=== PATIENT | male | born 1995 | race Caucasian/White ===

== ENCOUNTER 2016-11-26 17:50 | Emergency (ER) | payer BC, MEDICAID ==
[2016-11-26 18:03] VITALS: BP 136/71; TEMP 100.5; O2SAT 98
[2016-11-26] MEDS ORDERED: IBUPROFEN 200 MG TAB PO ONE (18:16)
[2016-11-26] MEDS ORDERED: ACETAMINOPHEN 325 MG TAB PO ONE (18:16)
--- NOTE | 2016-11-26 18:47 | ED.PDOC ---
History of Present Illness - General Chief Complaint: Fever Stated Complaint: Sore throat, body aches Time Seen by Provider: 11/26/16 17:59 Source: patient Exam Limitations: no limitations - History of Present Illness Initial Comments: The patient is a 21-year-old male presenting to the emergency room secondary to 3-5 days of symptoms of low-grade fever and mildsore throat. He has had a mild runny nose and a mild cough. He does have some body aches. No rash. Mild headache. No altered mental status. No diarrhea. Severity: moderate Improving Factors: nothing Worsening Factors: nothing Associated Symptoms: cough, loss of appetite, malaise Allergies/Adverse Reactions: Allergies NO KNOWN ALLERGY Allergy (Verified 11/26/16 18:01) Home Medications: Ambulatory Orders NK [NK] 11/26/16 Review of Systems - Review of Systems Constitutional: States: malaise EENTM: States: nose congestion, throat pain Respiratory: States: cough Cardiology: States: no symptoms reported Gastrointestinal/Abdominal: States: no symptoms reported Genitourinary: States: no symptoms reported Musculoskeletal: States: other - eneralized body aches Skin: States: no symptoms reported Neurological: States: no symptoms reported Endocrine: States: no symptoms reported All other Systems: No Change from Baseline Past Medical History (General) - Patient Medical History Hx Stroke: No Hx Congestive Heart Failure: No Hx Diabetes: No Hx MRSA: Yes MRSA Source:: Wound Surgical History: no surgical history, other - Vaccination History Hx Tetanus, Diphtheria Vaccination: Yes - unknown Hx Influenza Vaccination: No Hx Pneumococcal Vaccination: No - Social History Hx Tobacco Use: No Hx Alcohol Use: No Family Medical History - Family History Father Family History: No Known Living Status: Still Living Physical Exam - Physical Exam General Appearance: Alert, No apparent distress Eye Exam: bilateral normal Ears, Nose, Throat: hearing grossly normal, nasal congestion, pharyngeal erythema - no exudate Neck: full range of motion, supple Respiratory: chest non-tender, lungs clear, normal breath sounds, no respiratory distress, no accessory muscle use Cardiovascular/Chest: normal peripheral pulses, regular rate, rhythm, no edema Peripheral Pulses: radial,right: 2+, dorsalis pedis,right: 2+, dorsalis pedis, left: 2+ Gastrointestinal/Abdominal: non tender, soft Rectal Exam: deferred Back Exam: normal inspection, no CVA tenderness, no vertebral tenderness Extremity: normal range of motion, non-tender, normal inspection, no pedal edema , normal capillary refill 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 He needs to keep well-hydrated. He needs to alternate Aleve and Tylenol to help reduce fever, body aches and inflammation in the back of his throat. Rapid test for the flu and for strep throat are negative. ER warnings were given for any significant worsening. Chloraseptic can additionally be used to reduce sore throat symptoms. - Results/Orders Results/Orders: apid strep and rapid flu were negative. Departure - Departure Clinical Impression: Pharyngitis Qualifiers: Pharyngitis/tonsillitis etiology: unspecified etiology Qualified Code(s): J02.9 - Acute pharyngitis, unspecified Disposition: Discharge to Home or Self Care Condition: Fair Departure Forms: ED Discharge - Pt. Copy, Patient Portal Self Enrollment Instructions: DI for Viral Pharyngitis Diet: regular diet Activity: increase activity as tolerated Home Medications: Ambulatory Orders NK [NK] 11/26/16 Additional Instructions: the patient is a 21-year-old male presenting to the emergency room secondary to what appears to be a viral syndrome with moderate pharyngitis. He needs to keep well-hydrated. He needs to alternate Aleve and Tylenol to help reduce fever, body aches and inflammation in the back of his throat. Rapid test for the flu and for strep throat are negative. ER warnings were given for any significant worsening. Chloraseptic can additionally be used to reduce sore throat symptoms.
== END 2016-11-26 18:55 | disposition home or self-care (01) ==
LOC: ER 17:50
DX: J02.9 Acute pharyngitis, unspecified (principal)